=== PATIENT | female | born 2005 | race Caucasian/White ===

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

== ENCOUNTER → 2024-02-10 | Outpatient (CLI) | payer BC | LOC: M RAD 14:51 | PROVIDERS: ATTEND Physician Assistant | DX: M25.541 Pain in joints of right hand (principal) ==

== ENCOUNTER 2024-05-10 21:00 | Emergency (ER) | payer BC ==
[~2024-05-10] VITALS: Ht 160 cm; Wt 61.3 kg
[2024-05-10] MEDS: diphenhydrAMINE 50MG CAP PO ONE (21:37)
[2024-05-10] MEDS ORDERED: DIPH-435 PO (22:07)
[2024-05-10 22:11] VITALS: BP 123/79; TEMP 98.2; O2SAT 100
== END 2024-05-10 22:20 | disposition home or self-care (01) ==
LOC: M ED 21:00 → EDBD 21:00 → M ED 22:20
DX: T40.715A Adverse effect of cannabis, initial encounter (principal); L29.9 Pruritus, unspecified; R21 Rash and other nonspecific skin eruption

== ENCOUNTER 2024-05-20 14:41 | Emergency (ER) | payer BC, OTHER ==
[~2024-05-20] VITALS: Ht 162.6 cm; Wt 76.5 kg
[~2024-05-20 14:41] MED LIST: DIPH-435 PO
[2024-05-20] MEDS: BOOSTRIX VACCINE (TETANUS/DIPHTH/ACEL. PERTUSSIS) 0.5ML SYR IM.IMMUN ONE (15:48)
[2024-05-20] MEDS ORDERED: MOXI1TAB PO (16:40)
[2024-05-20 18:46] VITALS: BP 124/87; TEMP 98.2; O2SAT 100
== END 2024-05-20 18:52 | disposition home or self-care (01) ==
LOC: M ED 14:41
DX: S01.531A Puncture wound without foreign body of lip, initial encounter (principal); S01.81XA Laceration without foreign body of other part of head, initial encounter; W54.0XXA Bitten by dog, initial encounter; Y92.009 Unspecified place in unspecified non-institutional (private) residence as the place of occurrence of the external cause; Y93.9 Activity, unspecified; Y99.9 Unspecified external cause status; Z88.0 Allergy status to penicillin; Z88.6 Allergy status to analgesic agent; Z88.8 Allergy status to other drugs, medicaments and biological substances

== ENCOUNTER → 2024-08-01 | Outpatient (CLI) | payer BC ==
[~2024-08-01] MED LIST changes: +MOXI1TAB PO
[2024-08-01 15:32] LABS: HEMATOCRIT 34.3 % (36.0-47.0); HEMOGLOBIN 11.6 g/dl (12.0-15.5); MEAN CORPUSCULAR HEMOGLOBIN 27.2 pg (27.0-33.0); MEAN CORPUSCULAR HGB CONC 33.8 g/dl (32.0-36.5); MEAN CORPUSCULAR VOLUME 80.5 fl (80.0-96.0); PLATELET COUNT, AUTOMATED 218 10^3/uL (150-450); RED BLOOD COUNT 4.26 10^6/uL (4.00-5.40); WHITE BLOOD COUNT 6.7 10^3/uL (4.0-10.0)
[2024-08-01 16:03] LABS: HIV 1&2 SCREEN NEGATIVE (NEGATIVE)
[2024-08-01 16:10] LABS: HEPATITIS C VIRUS ABY INDEX 0.03 INDEX (<0.8)
[2024-08-01 17:11] LABS: Trichomonas vaginalis (AMP) NOT DETECTED (NEGATIVE)
[2024-08-01 17:32] LABS: GC DNA AMPLIFICATION NEGATIVE (NEGATIVE)
== END ==
LOC: M PLALAB 10:18
PROVIDERS: ATTEND Nurse Practitioner Family
DX: Z34.80 Encounter for supervision of other normal pregnancy, unspecified trimester (principal)

== ENCOUNTER 2024-08-02 23:59 | Emergency (ER) | payer BC ==
[~2024-08-02] VITALS: Ht 162.6 cm; Wt 77.2 kg
[2024-08-03 00:02] VITALS: BP 123/75; TEMP 97.3; O2SAT 99
== END 2024-08-03 01:42 | disposition left against medical advice (07) ==
LOC: M ED 23:59
DX: Z53.21 Procedure and treatment not carried out due to patient leaving prior to being seen by health care provider (principal)

== ENCOUNTER → 2024-08-29 | Outpatient (CLI) | payer BC | LOC: M WHC 14:32 | PROVIDERS: ATTEND Nurse Practitioner Family | DX: Z34.80 Encounter for supervision of other normal pregnancy, unspecified trimester (principal); Z53.9 Procedure and treatment not carried out, unspecified reason ==

== ENCOUNTER → 2024-11-27 | Outpatient (CLI) | payer BC ==
[2024-11-27 13:27] LABS: PLATELET COUNT, AUTOMATED 230 10^3/uL (150-450)
[2024-11-27 13:47] LABS: GLUCOSE CHALLENGE TEST 1 HOUR 68 MG/DL (LESS THAN 140)
[2024-11-27 14:15] LABS: HIV 1&2 SCREEN NEGATIVE (NEGATIVE)
[2024-11-27 14:24] LABS: HEPATITIS C VIRUS ABY INDEX 0.04 INDEX (<0.8)
[2024-11-27 15:04] LABS: Trichomonas vaginalis (AMP) NOT DETECTED (NEGATIVE)
[2024-11-27 15:28] LABS: GC DNA AMPLIFICATION NEGATIVE (NEGATIVE)
== END ==
LOC: M PLALAB 08:26
PROVIDERS: ATTEND Nurse Practitioner Family
DX: Z34.80 Encounter for supervision of other normal pregnancy, unspecified trimester (principal)

== ENCOUNTER 2024-12-31 11:05 | Outpatient (CLI) | payer BC ==
[~2024-12-31 11:05] MED LIST changes: +ACETAMINOPHEN 325 MG TAB PO ONE; +ALBUTEROL SULFATE 2.5 MG/0.5 ML INH CONCENTRATE NEB SOLN INH PRN; +EPINEPHrine INJ 1 MG/ML 1ML AMP IM PRN; +diphenhydrAMINE 50 MG/ML VIAL IV PRN
[2024-12-31 11:15] VITALS: BP 128/66; O2SAT 98
[2024-12-31] MEDS: IRON SUCROSE 200MG IVP IV ONE (11:17)
[2024-12-31 12:05] VITALS: BP 116/68; O2SAT 99
== END 2024-12-31 13:03 | disposition home or self-care (01) ==
LOC: M INFU 11:05
PROVIDERS: ATTEND Nurse Practitioner Family
DX: D50.9 Iron deficiency anemia, unspecified (principal); Z88.0 Allergy status to penicillin; Z88.6 Allergy status to analgesic agent
CPT/HCPCS: 96374; J1756

== ENCOUNTER 2025-01-07 11:00 | Outpatient (CLI) | payer BC ==
[~2025-01-07 11:00] MED LIST changes: -ACETAMINOPHEN 325 MG TAB PO ONE
[2025-01-07 11:15] VITALS: BP 118/58; O2SAT 98
[2025-01-07] MEDS: IRON SUCROSE 200 MG IVP IV ONE (11:23)
[2025-01-07] MEDS: ACETAMINOPHEN 650 MG PO ONE (11:24)
[2025-01-07 12:05] VITALS: BP 112/57; O2SAT 98
== END 2025-01-07 15:10 ==
LOC: M INFU 11:00
PROVIDERS: ATTEND Nurse Practitioner Family
DX: D50.9 Iron deficiency anemia, unspecified (principal); Z88.0 Allergy status to penicillin; Z88.6 Allergy status to analgesic agent
CPT/HCPCS: 96374; J1756

== ENCOUNTER → 2025-01-22 | Outpatient (REF) | payer BC ==
[~2025-01-22] MED LIST changes: -ALBUTEROL SULFATE 2.5 MG/0.5 ML INH CONCENTRATE NEB SOLN INH PRN; -EPINEPHrine INJ 1 MG/ML 1ML AMP IM PRN; -diphenhydrAMINE 50 MG/ML VIAL IV PRN
== END ==
LOC: M PLALAB 08:29
PROVIDERS: ATTEND Nurse Practitioner Family
DX: Z3A.35 35 weeks gestation of pregnancy (principal)

== ENCOUNTER → 2025-02-05 | Outpatient (CLI) | payer BC ==
[2025-02-05 11:11] LABS: PLATELET COUNT, AUTOMATED 168 10^3/uL (150-450)
== END ==
LOC: M PLALAB 09:27
PROVIDERS: ATTEND Nurse Practitioner Family
DX: O99.013 Anemia complicating pregnancy, third trimester (principal); D64.9 Anemia, unspecified; Z3A.00 Weeks of gestation of pregnancy not specified

== ENCOUNTER → 2025-04-10 | Outpatient (REF) | payer BC ==
[~2025-04-10] MED LIST changes: +ACET-683 PO; +FERR325T3 PO; +IBUP80TA PO; +PRENTAB9 PO
== END ==
LOC: M SFHCWAGY 15:31
PROVIDERS: ATTEND Obstetrics & Gynecology
DX: R30.0 Dysuria (principal)